=== PATIENT | male | born 1995 | race African-American/Black ===

== ENCOUNTER 2017-11-17 09:21 | Emergency (ER) | payer BC ==
[~2017-11-17] VITALS: Ht 180.3 cm; Wt 86.2 kg
[~2017-11-17 09:21] MED LIST: XOPONEX
[2017-11-17] MEDS ORDERED: IBUPROFEN 600 MG TAB PO STA (09:50)
[2017-11-17 10:30] VITALS: BP 146/88
== END 2017-11-17 10:38 | disposition home or self-care (01) ==
LOC: FSED 09:21
DX: G89.11 Acute pain due to trauma (principal); S43.015A Anterior dislocation of left humerus, initial encounter; X58.XXXA Exposure to other specified factors, initial encounter; Y92.008 Other place in unspecified non-institutional (private) residence as the place of occurrence of the external cause
CPT/HCPCS: 73020; 99284